=== PATIENT | female | born 1945 | race Two or more races ===

== ENCOUNTER 2018-07-08 19:04 | Emergency (ER) | payer OTHER ==
[~2018-07-08] VITALS: Ht 154.9 cm; Wt 73.0 kg
[~2018-07-08 19:04] MED LIST: AMOX1TAB12 PO; CEPHULAC10 G/15 ML PO; COUMADIN4 MG PO; LOVENOX100 MG/1 M; MUPIROCIN22 GM TOP
== END 2018-07-08 21:58 | disposition home or self-care (01) ==
LOC: ER 19:04
DX: S52.531A Colles' fracture of right radius, initial encounter for closed fracture (principal); W18.39XA Other fall on same level, initial encounter; Y93.89 Activity, other specified; Y92.098 Other place in other non-institutional residence as the place of occurrence of the external cause; Y99.8 Other external cause status

== ENCOUNTER 2019-02-13 13:59 | Emergency (ER) | payer OTHER ==
[~2019-02-13] VITALS: Ht 154.9 cm; Wt 68.0 kg
[2019-02-13] MEDS ORDERED: PLAVIX75 MG (14:27)
== END 2019-02-13 19:24 | disposition home or self-care (01) ==
LOC: ER 13:59
DX: M62.838 Other muscle spasm (principal); M25.511 Pain in right shoulder